=== PATIENT | female | born 1935 | race Caucasian/White ===

== ENCOUNTER 2019-10-18 16:07 | Inpatient (IN) | payer OTHER, SELFPAY ==
[~2019-10-18] VITALS: Ht 152.4 cm; Wt 44.5 kg
--- NOTE | 2019-10-18 16:16 | NUR ---
Patient to ER bed 05 to gown for evaluation. Side rails up.
--- NOTE | 2019-10-18 16:18 | NUR ---
Patient brought in by ambulance in the ED for chest pain with shortness of breath that started today. Patient got tested negative for Covid-19 per Paramedics. Denied any fevers, chills, nausea, or vomiting. Patient is alert and oriented x4 and speaking in full sentences. VSS, pain level 1/10. Informed of approximate wait time. Instructed to notify ED staff for any changes in condition or worsening of symptoms. Patient verbalized understanding.
[2019-10-18] MEDS ORDERED: NACL 0.9% 1,000 ML IV ONE ×2 (16:19→20:45)
--- NOTE | 2019-10-18 16:20 | NUR ---
ER Dr. Bundy at bedside examining patient.
[2019-10-18] MEDS ORDERED: CLOPIDOGREL BISULFATE 75 MG TABLET PO ONE (16:30)
[2019-10-18] MEDS ORDERED: NITROGLYCERIN 0.4 MG TAB.SUBL SL ONE (16:30)
[2019-10-18] MEDS ORDERED: ASPIRIN 81 MG TAB.CHEW PO ONE (16:30)
[2019-10-18 16:32] VITALS: BP_SYST 131
--- NOTE | 2019-10-18 16:45 | NUR ---
RT at bedside collecting ABGs as ordered by Dr. Bundy. Patient tolerated the procedure well.
--- NOTE | 2019-10-18 16:45 | NUR ---
Administered ASA, Nitroglycerine, Plavix PO as ordered by Dr. Bundy. Patient tolerated the medication well. See eMAR for details.
--- NOTE | 2019-10-18 16:46 | NUR ---
plastic eye technician at bedside as ordered by Dr. Bundy collecting blood specimen. Patient tolerated the procedure well.
[2019-10-18 17:02] LABS: BASOPHILS % (AUTO) 0.7 % (0.0-2.0); EOSINOPHILS # (AUTO) 0.2 K/uL (0.0-0.4); EOSINOPHILS % (AUTO) 4.2 % (0.0-4.0); HEMATOCRIT 38.7 % (36-48); HEMOGLOBIN 12.7 g/dL (12.0-16.0); LYMPHOCYTES # (AUTO) 1.1 K/uL (1.0-5.5); LYMPHOCYTES % (AUTO) 25.6 % (20.5-51.5); MEAN CORPUSCULAR HEMOGLOBIN 34 pg (27-31); MEAN CORPUSCULAR HGB CONC 33 % (32-36); MEAN CORPUSCULAR VOLUME 102 fL (79.0-98.0); MONOCYTES # (AUTO) 0.5 K/uL (0.0-1.0); MONOCYTES % (AUTO) 12.4 % (1.7-9.3); NEUTROPHILS # (AUTO) 2.4 K/uL (1.8-7.7); NEUTROPHILS % (AUTO) 57.1 % (40.0-70.0); PLATELET COUNT (AUTO) 165 K/uL (130-430); RED BLOOD CELL COUNT(AUTO) 3.79 MIL/uL (4.2-6.2); RED CELL DISTRIBUTION WIDTH 12.7 % (9.0-15.0); WHITE BLOOD COUNT (AUTO) 4.2 K/uL (4.8-10.8)
[2019-10-18 17:22] LABS: ANION GAP 7 (5-15); CALCIUM 8.6 mg/dL (8.4-11.0); CHLORIDE 102 mmol/L (98-107); CREATININE 0.71 mg/dL (0.55-1.30); GLUCOSE 159 mg/dL (70-99); POTASSIUM 3.4 mmol/L (3.5-5.1); SODIUM SERUM 136 mmol/L (136-145); UREA NITROGEN, BLOOD 9 mg/dL (8-21)
[2019-10-18 17:25] LABS: INR 1.1 (0.8-1.2); PROTHROMBIN TIME 11.4 SECS (9.5-12.5)
[2019-10-18 17:28] LABS: TOTAL BILIRUBIN 0.5 mg/dL (0.0-1.0)
[2019-10-18 17:29] LABS: ALANINE AMINOTRANSFERASE 19 U/L (12-78); ALBUMIN 3.6 g/dL (3.4-4.8); ASPARTATE AMINOTRANSFERASE 20 U/L (10-37)
[2019-10-18 17:30] LABS: LIPASE 59 U/L (73-393)
--- NOTE | 2019-10-18 17:33 | NUR ---
Patient is resting comfortably in bed, respirations even and unlabored, speaking in full sentences. VSS.
[2019-10-18 17:39] LABS: BILIRUBIN,URINE NEGATIVE (NEGATIVE); BLOOD, URINE NEGATIVE (NEGATIVE); COLOR,URINE YELLOW (YELLOW); GLUCOSE,URINE NEGATIVE (NEGATIVE); KETONES,URINE NEGATIVE (NEGATIVE); LEUKOCYTE ESTERASE ,URINE 1+ (NEGATIVE); NITRITE, URINE NEGATIVE (NEGATIVE); PROTEIN URINE NEGATIVE (NEGATIVE); UROBILINOGEN,URINE 0.2 (0.2-1.0)
--- NOTE | 2019-10-18 17:45 | NUR ---
Martin alvarez in [facility] - 10/18/19 at 1746 by [email or web address] Report given to AMADOR Rose of [facility] at [phone].
[2019-10-18 17:48] LABS: CLARITY/URINE HAZY (CLEAR)
--- NOTE | 2019-10-18 17:50 | NUR ---
Patient is resting comfortably in bed, respirations even and unlabored on 2LPM O2 via NC.
[2019-10-18 17:56] LABS: BACTERIA,URINE MODERATE /HPF (None Seen); RBC,URINE 0-3 /HPF (0-3)
[2019-10-18] MEDS ORDERED: SERT-131 PO (18:13)
[2019-10-18] MEDS ORDERED: AMLO5TAB4 PO (18:13)
[2019-10-18] MEDS ORDERED: RISP0.253 PO (18:13)
[2019-10-18] MEDS ORDERED: GABA-531 PO (18:13)
[2019-10-18] MEDS ORDERED: SENN8.6T19 PO (18:13)
[2019-10-18] MEDS ORDERED: XALEYE OP (18:13)
[2019-10-18] MEDS ORDERED: FER300L PO (18:13)
[2019-10-18] MEDS ORDERED: METO50TA7 PO (18:13)
[2019-10-18] MEDS ORDERED: LIP40 PO (18:13)
[2019-10-18] MEDS ORDERED: LIDOINT TP (18:13)
[2019-10-18] MEDS ORDERED: PERC10 PO (18:13)
[2019-10-18] MEDS ORDERED: TRAZ-250 PO (18:13)
[2019-10-18] MEDS ORDERED: APIX2.5T PO (18:13)
[2019-10-18] MEDS ORDERED: METH750T3 PO (18:13)
[2019-10-18] MEDS ORDERED: LEVO137T2 PO (18:13)
[2019-10-18] MEDS ORDERED: POLY17PO4 PO (18:13)
[2019-10-18] MEDS ORDERED: OMEP40CA33 PO (18:13)
[2019-10-18] MEDS ORDERED: NAPR-688 PO (18:13)
[2019-10-18] MEDS ORDERED: FEXO180T94 PO (18:13)
--- NOTE | 2019-10-18 19:11 | NUR ---
Report given and care transferred to AMADOR La.
--- NOTE | 2019-10-18 19:11 | NUR ---
Reconciled medication.
--- NOTE | 2019-10-18 19:15 | NUR ---
Report recieved for continuation of care from AMADOR El.
[2019-10-18] MEDS ORDERED: cefTRIAXone 1 GM IVPB PREMIX 50 ML IV ONE (19:30)
--- NOTE | 2019-10-18 19:30 | NUR ---
Dr. Bundy ordered Rocephin at 100 mls/hr. Pt tolerating well. No adverse reaction noted.
--- NOTE | 2019-10-18 20:16 | NUR ---
Pt resting, symmetric chest rise and fall, no respiratory distress. Will continue to monitor.
[2019-10-18] MEDS ORDERED: DOCUSATE SODIUM 100 MG/10 ML UDC PO PRN (20:30)
[2019-10-18] MEDS ORDERED: ONDANSETRON HCL 4 MG/2 ML VIAL IVP PRN (20:30)
[2019-10-18] MEDS ORDERED: ZOLPIDEM TARTRATE 5 MG TABLET PO PRN (20:30)
[2019-10-18] MEDS ORDERED: ACETAMINOPHEN 500 MG TABLET PO PRN (20:30)
[2019-10-18] MEDS ORDERED: traZODone HCL 50 MG TABLET (DESYREL) PO PRN (21:15)
[2019-10-18 21:34] LABS: BARBITURATE, URINE NEGATIVE (NEG <=200); BENZODIAZEPINE, URINE NEGATIVE (NEG <=150); CANNABINOID, URINE NEGATIVE (NEG <=50); COCAINE, URINE NEGATIVE (NEG <=150); METHAMPHETAMINES SCREEN,URINE NEGATIVE (NEG <=500); OPIATE, URINE NEGATIVE (NEG <=100); PHENCYCLIDINE SCREEN,URINE NEGATIVE (NEG <=25); UR TRICYCLIC ANTIDEPRESSANTS NEGATIVE (NEG <=300); URINE AMPHETAMINE NEGATIVE (NEG <=500); URINE METHADONE NEGATIVE (NEG <=200); URINE OXYCODONE SCREEN NEGATIVE (NEG <=100); URINE PROPOXYPHENE SCREEN NEGATIVE (NEG <=300)
--- NOTE | 2019-10-18 22:25 | NUR ---
Pt c/o chest pain, Dr. Celestin called, T/O for nitroglycerin 0.4 and [place]. aware of allergy. Discussed w/ patient if she takes any opioids at home, pt states taking oxycodone at home.
[2019-10-18 22:28] LABS: FREE T4 (FREE THYROXINE) 0.8 ng/dL (0.6-1.6); PHOSPHORUS 3.8 mg/dL (2.7-4.5); THYROID STIMULATING HORMONE 0.57 uIu/mL (0.34-4.82)
[2019-10-18] MEDS ORDERED: HYDROcodone/ACETAMIN 5-325 MG TAB (NORCO/ VICODIN) PO ONE (22:30)
[2019-10-18] MEDS ORDERED: NITROGLYCERIN 0.4 MG TAB.SUBL SL PRN (22:30)
--- NOTE | 2019-10-18 23:20 | NUR ---
IV placement not intact. # 20 gauge angiocath placed to L forearm. Use of asceptic technique. Opsite placed over site. Flushed with 10 cc of normal saline. No evidence of infiltration noted. Patient tolerated well.
[2019-10-18] MEDS: HYDROcodone/ACETAMIN 7.5-325 MG TAB PO PRN (23:56)
[2019-10-19] MEDS: PANTOPRAZOLE SODIUM 40 MG TAB PO SCH ×2 (00:56→08:37)
--- NOTE | 2019-10-19 01:30 | NUR ---
Pt resting, symmetric chest rise and fall. No complaints at this time.
--- NOTE | 2019-10-19 03:30 | NUR ---
Pt resting, no complaints at this time. Symmetric chest rise and fall.
[2019-10-19] MEDS: HYDROcodone/ACETAMIN 7.5-325 MG TAB PO PRN ×4 (05:20→23:22)
--- NOTE | 2019-10-19 05:20 | NUR ---
Pt c/o chest discomfort, given NORCO order from Dr. Celestin. Pt tolerated well. Resting, symmetric chest rise and fall.
--- NOTE | 2019-10-19 06:15 | NUR ---
Synthroid medication due, medication not in the ER or MEDSURG UNIT. Will report to nurse medication delay.
--- NOTE | 2019-10-19 07:45 | NUR ---
Report given to [place] Addendum: 10/19/19 at 0745 by [email or web address] for continuation of care.
--- NOTE | 2019-10-19 08:05 | NUR ---
Spoke to [facility] for the 0900 meds. Will bring them over.
--- NOTE | 2019-10-19 08:08 | NUR ---
Patient is resting comfortably in bed, no increased respiratory effort noted while running on 2LPM of Oxygen via NC, speaking in full sentences.
--- NOTE | 2019-10-19 08:31 | NUR ---
Administered all her AM meds PO as ordered by Dr. Celestin. Patient tolerated the medications well. See eMAR for details.
[2019-10-19] MEDS: LEVOTHYROXINE SODIUM 0.137 MG TABLET PO SCH (08:33)
[2019-10-19] MEDS: ATORVASTATIN 20 MG TABLET PO SCH (08:34)
[2019-10-19] MEDS: GABAPENTIN 300 MG CAPSULE PO SCH ×3 (08:34→20:11)
[2019-10-19] MEDS: APIXABAN 2.5 MG TABLET PO SCH ×2 (08:34→20:09)
[2019-10-19] MEDS: risperiDONE 0.25 MG TABLET (RisperDAL) PO SCH ×2 (08:37→20:09)
[2019-10-19] MEDS: amLODIPine BESYLATE 5 MG TABLET PO SCH (08:37)
[2019-10-19] MEDS: METOPROLOL SUCCINATE 50 MG TAB.SR.24H (TOPROL XL) PO SCH ×2 (08:38→20:35)
[2019-10-19] MEDS: SERTRALINE HCL 50 MG TABLET PO SCH (08:39)
--- NOTE | 2019-10-19 09:30 | NUR ---
Spoke with the patient's . Updated him of the current situation.
--- NOTE | 2019-10-19 09:41 | NUR ---
Dr. Celestin at bedside.
--- NOTE | 2019-10-19 09:47 | NUR ---
Dr. Montes at [facility]. Addendum: 10/19/19 at [email or web address] Marrero at [facility].
--- NOTE | 2019-10-19 10:44 | NUR ---
Administered TAtivan 2mg PO as ordered by Dr. Celestin. Patient tolerated the medications well. See eMAR for details.
[2019-10-19] MEDS ORDERED: LORazepam 1 MG TABLET PO PRN (10:45)
[2019-10-19] MEDS ORDERED: HYDROcodone/ACETAMIN 7.5-325 MG TAB ONE (10:48)
--- NOTE | 2019-10-19 10:56 | NUR ---
Patient is resting in bed, respirations even and unlabored with 2LPM of Oxygen via NC, denied any distress at this time.
[2019-10-19] MEDS ORDERED: LORazepam 1 MG TABLET ONE (11:01)
--- NOTE | 2019-10-19 12:04 | NUR ---
Patient is sleeping comfortably in bed, respirations even and unlabored, no acute distress noted.
--- NOTE | 2019-10-19 13:12 | NUR ---
Patient is asleep, respirations even and unlabored.
--- NOTE | 2019-10-19 14:17 | NUR ---
Patient is asleep, respirations even and unlabored. VSS.
--- NOTE | 2019-10-19 15:32 | NUR ---
Patient will be admitted to care of Dr. Celestin. Admitted to Tele unit. Will go to room 127B. Belongings list completed. Complete and up to date summary report printed. SBAR report to be given at bedside with opportunity for questions.
--- NOTE | 2019-10-19 16:03 | NUR ---
Received Report from AMADOR Ramos for continuity of care.
--- NOTE | 2019-10-19 16:04 | NUR ---
ADMISSION: The patient, RACHEL BOWEN, 84 y/o, F admitted by PIERRE STYLES DO, was given written information regarding hospital policies, unit procedures and contact persons. Valuables were checked and noted.
--- NOTE | 2019-10-19 16:45 | NUR ---
Pain Patient c/o 7/10 general body pain. Patient was given [place] 7.25-325 mg PO, tolerated well. Will continue to monitor.
[2019-10-19 17:01] VITALS: BP_SYST 147
--- NOTE | 2019-10-19 17:25 | NUR ---
Pain Reassessment Patient reported relief of pain from [place]. Will continue to monitor.
--- NOTE | 2019-10-19 18:00 | NUR ---
Notes Patient is awake, alert and oriented x4. No resp distress noted. Breathing is even and unlabored. Patient remains on continuous oxygen @ 2 LPM, tolerated well. Patient denies any pain at this time. Safety and fall precautions in place. Call light within reach. Bed in lowest position, locked. Will continue to monitor.
--- NOTE | 2019-10-19 18:55 | NUR ---
Closing Notes Patient is awake, alert and oriented x4. No resp distress noted. Breathing is even and unlabored. Patient remains on 2 liters of continuous oxygen via NC. Patient denies any pain at this time. Patient is ambulatory with FWW, steady gait. IV site on right FA, 20 gauge, intact. All needs met at this time. Will continue to monitor until next nurse comes on shift. Safety and fall precautions in place. Call light within reach. Bed in lowest position, alarm on, locked.
[2019-10-19] MEDS ORDERED: cefTRIAXone 1 GM IVPB PREMIX 50 ML IV SCH (19:00)
[2019-10-19 19:51] LABS: C-REACTIVE PROTEIN QUANT 0.4 mg/dL (0-0.5)
--- NOTE | 2019-10-19 19:58 | NUR ---
Initial note: Received report from reuben RN. Patient is lying in bed, watching TV. No acute distress. Even and unlabored respirations on 2L nasal cannula, tolerating well. IV site to right forearm patent and intact, saline locked. Patient is ambulatory with steady gait using FWW. Call light is with patient. Safety, fall precautions in place. COVID-[address] pending result. Will continue with plan of care.
[2019-10-19 20:34] VITALS: BP_SYST 147
[2019-10-19] MEDS ORDERED: LATANOPROST 2.5 ML DROPS (XALATAN) OP SCH (21:00)
[2019-10-19] MEDS ORDERED: AZU500 PO (21:18)
--- NOTE | 2019-10-19 21:34 | NUR ---
Sulfasalazine: Patient requesting to receive Sulfasalazine, stated she takes it at home for rheumatoid arthritis. Medication was not listed in eMAR, and was not listed in EMR medication reconciliation. Per paper documentation from [facility], patient takes Sulfasalazine 500 MG PO 2 tablets twice a day. Dosage, route, and frequency was confirmed by patient. Informed Dr. Ayde Celestin over telephone regarding patient's request, order received to enter medication to medication reconciliation, and then to continue it. Verified by read-back, RN to input.
[2019-10-19] MEDS: sulfASALAZINE 500 MG TABLET (AZULFIDINE) PO SCH (22:32)
--- NOTE | 2019-10-19 23:22 | NUR ---
Pain: Patient complained of moderate lower back pain. PRN [place] 7.5-325 1 tab administered as indicated per Dr order. Call light is with patient. Safety, fall precautions in place. Will continue to monitor.
[2019-10-20 00:10] VITALS: BP_SYST 105
--- NOTE | 2019-10-20 02:12 | NUR ---
Rounds: Patient is asleep. No acute distress. Tolerating 2L O2 via NC, even and unlabored breathing. IV site benign and intact, saline locked. Call light is with patient. Safety, fall precautions in place. Will continue monitoring.
[2019-10-20] MEDS: LEVOTHYROXINE SODIUM 0.137 MG TABLET PO SCH (05:44)
--- NOTE | 2019-10-20 06:21 | NUR ---
Closing note: Patient is resting comfortably in bed. No acute distress. Even, unlabored breathing on room air. IV site patent and intact. All needs met. Safety, fall precautions in place. Will endorse care to dayshift RN.
--- NOTE | 2019-10-20 07:38 | NUR ---
OPENING NOTE Patient resting in the bed. No acute distress. AAO x 4. Denied of pain. Skin warm and dry to touch. SL intact to RFA, no redness, no swelling, patent. On isolation. Safety measure maintained. Call light within reached. Bed locked in low position, side rails up. Refused bed alarm, risk and benefit explained, verbally understanding. Will continue to monitor.
[2019-10-20 07:40] VITALS: BP_SYST 137
[2019-10-20] MEDS: SERTRALINE HCL 50 MG TABLET PO SCH (08:47)
[2019-10-20] MEDS: ATORVASTATIN 20 MG TABLET PO SCH (08:47)
[2019-10-20] MEDS: GABAPENTIN 300 MG CAPSULE PO SCH ×2 (08:47→14:41)
[2019-10-20] MEDS: amLODIPine BESYLATE 5 MG TABLET PO SCH (08:47)
[2019-10-20] MEDS: PANTOPRAZOLE SODIUM 40 MG TAB PO SCH (08:47)
[2019-10-20] MEDS: METOPROLOL SUCCINATE 50 MG TAB.SR.24H (TOPROL XL) PO SCH (08:47)
[2019-10-20] MEDS: risperiDONE 0.25 MG TABLET (RisperDAL) PO SCH (08:47)
[2019-10-20] MEDS: sulfASALAZINE 500 MG TABLET (AZULFIDINE) PO SCH (08:47)
[2019-10-20] MEDS: APIXABAN 2.5 MG TABLET PO SCH (08:48)
--- NOTE | 2019-10-20 08:50 | NUR ---
AM SCHEDULE MED GIVEN, TOLERATED WELL.
--- NOTE | 2019-10-20 09:50 | NUR ---
SEEN BY DR. MADRIGAL [facility].
--- NOTE | 2019-10-20 11:25 | NUR ---
ROUND Patient resting in the bed with eye closed. No acute distress. Safety measure maintained. Bed locked in low position, side rails up. Call light within reached. Isolation maintained. Continue to monitor.
[2019-10-20 12:00] VITALS: BP_SYST 132
--- NOTE | 2019-10-20 13:45 | NUR ---
Spoke to Dr. Bush OK to discharge patient with out the result of COVID test patient is asymptomatic , last Covid test as out patient was negative per MD.
--- NOTE | 2019-10-20 14:20 | NUR ---
CALLED PATIENT'S REGARDING DISCHARGE HOME, NO ANSWER AT THIS TIME, LEFT MESSAGE.
--- NOTE | 2019-10-20 15:43 | NUR ---
CALLED PATIENT'S KADY INFORMED THE DISCHARGE, WILL WRAP KNITTING MACHINE OPERATOR AROUND [id number].
[2019-10-20 15:55] VITALS: BP_SYST 132
--- NOTE | 2019-10-20 16:00 | NUR ---
CALLED [facility] DR. RUSSELL THAT PROVIDED BY THE PATIENT FO APPOINTMENT. HOWEVER, PER AMY FROM DOCTOR'S OFFICE, THE PATIENT DID NOT GO THERE SINCE 2018, CANNOT MAKE A PHONE APPOINTMENT AT THIS TIME.
[2019-10-20 16:11] VITALS: BP_SYST 132
--- NOTE | 2019-10-20 16:40 | NUR ---
APPOINTMENT MAKE WITH THE PATIENT'S PCP [facility] ON 10/27/19 AT 1100 WITH GAS SUBSTATION OPERATOR GLEN.
--- NOTE | 2019-10-20 16:55 | NUR ---
D/C Patient Patient given medication reconciliation form and D/C instructions. Exit Care provided. Patient verbalized understanding. MD discussed with patient the results and treatment provided. Ambulatory with steady gait for discharge to home. Patient in stable condition, ID band removed. IV catheter removed, intact and dressing applied, no active bleeding. Patient and educated on pain management, continue home medication except Naproxen, follow up appointment, verbally understanding. All belongings sent with patient.
--- NOTE | 2019-10-27 14:13 | NUR ---
SS NOTES/DISCHARGE FOLLOW UP CALL: TOBACCO PRIMER MACHINE OPERATOR spoke with patient who states she "is okay" and "always tired" but stated that it is her baseline. Pt also stated she had an appointment with Dr. Carter earlier this morning and understood the discharge instructions. Pt also stated she does not need to see her psychiatrist/psychologist outpatient because her PCP gave her medication for her anxiety. Pt also was unsure about her instruction on stopping Naproxen but was advised to stop her oxycodone, pt will refer to her drug safety associate who prescribed her with the meds, but understood why she has to stop her oxycodone. Pt will call SS if any questions/concerns arise. SS will remain available but no follow up call needed again.
== END 2019-10-20 16:55 | disposition home or self-care (01) | DRG 291 ==
LOC: EDSEX 16:07 → SED 16:07 → SMU 19:41 → STU 19:50
PROVIDERS: ADMIT Family Medicine; ATTEND Family Medicine
DX: I11.0 Hypertensive heart disease with heart failure (principal); R65.11 Systemic inflammatory response syndrome (SIRS) of non-infectious origin with acute organ dysfunction; N39.0 Urinary tract infection, site not specified; E87.2 Acidosis; I48.20 Chronic atrial fibrillation, unspecified; I24.9 Acute ischemic heart disease, unspecified; I50.43 Acute on chronic combined systolic (congestive) and diastolic (congestive) heart failure; E03.9 Hypothyroidism, unspecified; E87.6 Hypokalemia; G89.4 Chronic pain syndrome; Z20.828 Contact with and (suspected) exposure to other viral communicable diseases; G62.9 Polyneuropathy, unspecified; F41.8 Other specified anxiety disorders; J44.9 Chronic obstructive pulmonary disease, unspecified; Z86.73 Personal history of transient ischemic attack (TIA), and cerebral infarction without residual deficits; Z88.8 Allergy status to other drugs, medicaments and biological substances; Z91.018 Allergy to other foods; Z79.01 Long term (current) use of anticoagulants; Z79.899 Other long term (current) drug therapy; Z90.49 Acquired absence of other specified parts of digestive tract; Z90.710 Acquired absence of both cervix and uterus
CPT/HCPCS: 36415; 36600; 71045; 80053; 80061; 80307; 81000-TC; 82150-TC; 82550-TC; 82728; 82803-TC; 83036; 83605; 83615-TC; 83690-TC; 83735-TC; 83880; 84100-TC; 84439; 84443-TC; 84484; 85025; 85610-TC; 85730-TC; 86140; 86710; 87040-TC; 87081; 87086; 93005; 96361; 96365; 99285; G0378; J0696; U0003-CS